=== PATIENT | male | born 1970 | race Caucasian/White ===

== ENCOUNTER 2017-12-04 17:22 | Emergency (ER) | payer SELFPAY ==
[~2017-12-04] VITALS: Ht 185.4 cm; Wt 99.1 kg
[2017-12-04 17:25] VITALS: BP 135/83; TEMP 98.7
[2017-12-04 18:34] VITALS: PULSE 87
[2017-12-04] MEDS ORDERED: FLEXERIL 1010 MG/TAB PO (18:34)
== END 2017-12-04 18:42 | disposition home or self-care (01) ==
LOC: COL.ER 17:22
DX: S13.4XXA Sprain of ligaments of cervical spine, initial encounter (principal); S23.3XXA Sprain of ligaments of thoracic spine, initial encounter; M19.042 Primary osteoarthritis, left hand; M19.041 Primary osteoarthritis, right hand; F17.210 Nicotine dependence, cigarettes, uncomplicated; Z98.890 Other specified postprocedural states; V23.4XXA Motorcycle driver injured in collision with car, pick-up truck or van in traffic accident, initial encounter
CPT/HCPCS: J1885